=== PATIENT | male | born 1985 | race Caucasian/White ===

== ENCOUNTER 2018-04-09 16:33 | Emergency (ER) | payer BC ==
--- NOTE | 2018-04-09 16:57 | EDPHY ---
H & P Stated Complaint: right foot infection s/p right toe amputation 1 1/2 months ago Time Seen by Provider: 04/09/18 16:46 HPI/ROS: CHIEF COMPLAINT: Postoperative infection HISTORY OF PRESENT ILLNESS: The patient is a 32 year old who comes to the emergency department complaining of a wound infection to his right foot. He states that 2 months ago he stepped on a piece of glass that penetrated to his bone. It got infected and caused osteomyelitis and he had to have a toe and 1st metatarsal amputation. His postoperative wound got infected and had to be revised about 3 weeks ago. He has been on doxycycline. He states however that he is starting to have fevers and the wound is dehisced and become erythematous and has purulent drainage. He States that it is very painful. He is worried about return of infection and bacteremia. Patient was newly diagnosed as type 2 diabetic at the beginning of this infection but states that is currently under much better control. Severity: Moderate Modifying factors: Chills improved with Tylenol this morning REVIEW OF SYSTEMS: Constitutional: See HPI EENTM: denies: blurred vision, double vision, nose congestion Respiratory: denies: cough, shortness of breath Cardiac: denies: chest pain, irregular heart rate, lightheadedness, palpitations Gastrointestinal/Abdominal: denies: abdominal pain, diarrhea, nausea, vomiting, blood streaked stools Genitourinary: denies: dysuria, frequency, hematuria, pain Musculoskeletal: See HPI Skin: denies: lesions, rash, jaundice, bruising Neurological: denies: headache, numbness, paresthesia, tingling, dizziness, weakness Hematologic/Lymphatic: denies: blood clots, easy bleeding, easy bruising Immunologic/allergic: denies: HIV/AIDS, transplant 10 systems reviewed and negative except as noted EXAM: GENERAL: Well-appearing, well-nourished and in no acute distress. HEAD: Atraumatic, normocephalic. EYES: Pupils equal round and reactive to light, extraocular movements intact, sclera anicteric, conjunctiva are normal. ENT: TMs normal, nares patent, oropharynx clear without exudates. Moist mucous membranes. NECK: Normal range of motion, supple without lymphadenopathy or JVD. LUNGS: Breath sounds clear to auscultation bilaterally and equal. No wheezes rales or rhonchi. HEART: Regular rate and rhythm without murmurs, rubs or gallops. ABDOMEN: Soft, nontender, normoactive bowel sounds. No guarding, no rebound. No masses appreciated. BACK: No CVA tenderness, no spinal tenderness, step-offs or deformities EXTREMITIES: Right toe and metatarsal amputation, wound dehisced in the middle with mild erythema, some skin. No obvious purulence. Very tender to palpation. Normal range of motion, no pitting or edema. No clubbing or cyanosis. NEUROLOGICAL: Cranial nerves II through XII grossly intact. Normal speech, normal gait. 5/5 strength, normal movement in all extremities, normal sensation , normal reflexes PSYCH: Normal mood, normal affect. SKIN: See above. Source: Patient Exam Limitations: No limitations - Personal History Current Tetanus/Diphtheria Vaccine: Yes Current Tetanus Diphtheria and Acellular Pertussis (TDAP): Yes - Medical/Surgical History Hx Asthma: No Hx Chronic Respiratory Disease: No Hx Diabetes: No Hx Cardiac Disease: No Hx Renal Disease: No Hx Cirrhosis: No Hx Alcoholism: No Hx HIV/AIDS: No Hx Splenectomy or Spleen Trauma: No Other PMH: right great toe amputation, borderline NIDDM - Family History Significant Family History: No pertinent family hx - Social History Smoking Status: Never smoked Alcohol Use: Sober Drug Use: None Constitutional: Initial Vital Signs Temperature (C) 36.6 C 04/09/18 16:34 Heart Rate 78 04/09/18 16:34 Respiratory Rate 18 04/09/18 16:34 Blood Pressure 169/94 H 04/09/18 16:34 O2 Sat (%) 98 04/09/18 16:34 O2 Delivery Mode Nasal Cannula O2 (L/minute) 2 Allergies/Adverse Reactions: No Known Allergies Allergy (Unverified 04/09/18 16:41) Home Medications: Medication Instructions Recorded Glimepiride [Amaryl] 4 mg PO DAILY 04/09/18 Ibuprofen [Motrin (*)] 800 mg PO TIDMEAL PRN 04/09/18 oxyCODONE IR [Oxycodone Ir (*)] 10 mg PO Q6 PRN 04/09/18 Medical Decision Making - Diagnostics Imaging: Discussed imaging studies w/ executive personal assistant Radiologist ED Course/Re-evaluation: 7:00 p.m. I discussed the case with Dr. Tellez who will admit to the medical service. He suggest Unasyn. Patient does not have severe sepsis. Patient's pain is controlled with ketamine. 8:00 p.m. the patient was evaluated by internal medicine. 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 He understands the risks involved. He is signing out AMA Differential Diagnosis: Partial list of the Differential diagnosis considered include but were not limited to; wound infection, postoperative infection, cellulitis, osteomyelitis and although unlikely based on the history and physical exam, I also considered joint infection, sepsis. - Data Points Laboratory Results: Laboratory Results 04/09/18 17:28 04/09/18 17:28 Microbiology Results: MICROBIOLOGY 04/09/18 17:50 Foot - Anaerobic Tube/Swab Gram Stain - Final 04/09/18 17:50 Foot - Anaerobic Tube/Swab Wound Culture - Preliminary Klebsiella Aerogenes Enterobacter Cloacae Complex MRSA Medications Given: Discontinued Medications Ampicillin Sodium/Sulbactam (Sodium 3 gm/ Sodium Chloride) 100 mls @ 200 mls/ hr IV EDNOW ONE PRN Reason: Protocol Stop: 04/09/18 19:34 Last Admin: 04/09/18 20:12 Dose: Not Given Ketamine HCl (Ketamine) 20 mg IVP EDNOW ONE Stop: 04/09/18 18:25 Last Admin: 04/09/18 18:36 Dose: 20 mg Departure - Departure Disposition: Against Medical Advice Clinical Impression: Surgical wound infection Qualifiers: Encounter type: initial encounter Qualified Code(s): T81.4XXA - Infection following a procedure, initial encounter Condition: Fair
[2018-04-09 18:10] LABS: PLATELET COUNT 311 10^3/uL (150-400)
[2018-04-09 18:20] LABS: INR 1.02 (0.83-1.16)
[2018-04-09 18:21] LABS: PROTIME(PATIENT) 13.6 SEC (12.0-15.0)
[2018-04-09] MEDS ORDERED: KETAMINE 200 MG/20 ML VIAL IVP ONE (18:24)
[2018-04-09] MEDS ORDERED: AMPICILLIN/SULBACTAM 3 GM in NS 100 ML IV ONE (19:05)
[2018-04-09] MEDS ORDERED: ONDANSETRON DISINTEGRATING 4 MG TAB PO PRN (19:07)
[2018-04-09] MEDS ORDERED: ONDANSETRON 4 MG/2 ML VIAL IVP PRN (19:07)
[2018-04-09] MEDS ORDERED: OXYCODONE/APAP 5/325 TAB PO PRN (19:07)
[2018-04-09] MEDS ORDERED: ACETAMINOPHEN 325 MG TAB PO PRN (19:07)
[2018-04-09 19:40] VITALS: BP 165/105
[2018-04-10] MEDS ORDERED: AMPICILLIN/SULBACTAM 3 GM in NS 100 ML IV SCH
[2018-04-10] MEDS ORDERED: ENOXAPARIN 40 MG/0.4 ML SYR SC SCH (09:00)
== END 2018-04-09 20:18 | disposition left against medical advice (07) ==
LOC: UNDOADMOB 19:07
DX: T81.4XXA Infection following a procedure, initial encounter (principal); E11.9 Type 2 diabetes mellitus without complications; Z89.421 Acquired absence of other right toe(s)
CPT/HCPCS: J0295; J1650

== ENCOUNTER 2018-04-09 23:18 | Inpatient (IN) | payer BC ==
[2018-04-09] MEDS ORDERED: AMPICILLIN/SULBACTAM 3 GM in NS 100 ML IV ONE (23:55)
--- NOTE | 2018-04-09 23:58 | EDPHY ---
H & P Time Seen by Provider: 04/09/18 23:43 HPI/ROS: CHIEF COMPLAINT: Right foot infection HISTORY OF PRESENT ILLNESS: Patient is a 32-year-old male with a history of type 2 diabetes and osteomyelitis of the right foot here requesting admission for right foot infection. He was seen earlier today and offered admission but left against medical advice in order to take care of his children. He is returning now stating REVIEW OF SYSTEMS: Constitutional: No fever, no chills. Eyes: No discharge. ENT: No sore throat. Cardiovascular: No chest pain, no palpitations. Respiratory: No cough, no shortness of breath. Gastrointestinal: No abdominal pain, no vomiting. Genitourinary: No hematuria. Musculoskeletal: No back pain. Skin: No rashes. Neurological: No headache. Smoking Status: Never smoked Physical Exam: General Appearance: Alert and no distress. Eyes: Pupils equal and round no injection. Respiratory: Chest is nontender, lungs are clear to auscultation. Cardiac: regular rate and rhythm. Gastrointestinal: Abdomen is soft and nontender, no masses, bowel sounds normal. Musculoskeletal: Neck is supple and nontender. Extremities have full range of motion and are nontender. Skin: 3-4 cm surgical incision over the right medial midfoot with wound dehiscence. There is surrounding erythema and induration without drainage. Constitutional: Initial Vital Signs Temperature (C) 37.2 C 04/09/18 23:24 Heart Rate 109 H 04/09/18 23:24 Respiratory Rate 20 04/09/18 23:24 Blood Pressure 151/127 H 04/09/18 23:24 O2 Sat (%) 95 04/09/18 23:24 O2 Delivery Mode Room Air Allergies/Adverse Reactions: No Known Allergies Allergy (Unverified 04/09/18 16:41) Home Medications: Medication Instructions Recorded Glimepiride [Amaryl] 4 mg PO DAILY 04/09/18 Ibuprofen [Motrin (*)] 800 mg PO TIDMEAL PRN 04/09/18 oxyCODONE IR [Oxycodone Ir (*)] 10 mg PO Q6 PRN 04/09/18 Medical Decision Making ED Course/Re-evaluation: Patient admitted for further management of right foot wound dehiscence and infection. Patient likely needs an MRI to ensure he does not have chronic osteomyelitis. Unasyn was given in the emergency room after blood cultures and wound culture were sent. Differential Diagnosis: Sepsis, osteomyelitis, necrotizing fasciitis, compartment syndrome, DVT Departure - Departure Disposition: [facility] Inpatient Acute Condition: Fair
[2018-04-10] MEDS ORDERED: ONDANSETRON 4 MG/2 ML VIAL IVP PRN (00:10)
[2018-04-10] MEDS ORDERED: ACETAMINOPHEN 325 MG TAB PO PRN (00:10)
[2018-04-10] MEDS ORDERED: ONDANSETRON DISINTEGRATING 4 MG TAB PO PRN (00:10)
[2018-04-10] MEDS ORDERED: HYDROmorphONE/DILAUDID 4 MG TAB PO PRN (02:18)
[2018-04-10] MEDS ORDERED: D50W 25 GM/50 ML VIAL IVP PRN (02:19)
[2018-04-10] MEDS ORDERED: VANCOMYCIN 1.25 GM in NS 250 ML IV SCH (02:30)
--- NOTE | 2018-04-10 02:34 | PDGENHP ---
History and Physical - Chief Complaint Foot infection - History of Present Illness 32 yo M w/ NIDDM presents with R foot infection. Patient tells me he initially suffered an injury to his R foot (stepped on glass) 6 months ago. This progressed to osteomyelitis and he was treated with two rounds of IV antibiotics (Vancomycin and then Daptomycin). Despite this he required 2 separate surgical procedures (3 months and 1.5 months ago) resulting in the loss of his R great toe. He tells me since his last surgery his wound has not healed well. He moved to [place] from [place] 2 months ago. He was seen [facility] two weeks ago and had the wound sutured and he was placed on a ten day course of Clindamycin. Despite this, his foot has become swollen, red, and hot over the last 6 days. He reports several fevers at home in the 103-104 range. Currently he is complaining of severe R foot pain but otherwise feels well. Of note, he tells me his diabetes is mild and he takes only oral glimepiride. He checks his BG once daily and usually gets values near 100. Case discussed with ED EFRA Crow and surgeon Dr. Marinelli. History Information - Allergies/Home Medication List Allergies/Adverse Reactions: No Known Allergies Allergy (Unverified 04/09/18 16:41) Home Medications: Glimepiride [Amaryl] 4 mg PO DAILY 04/09/18 [Last Taken 04/09/18] Ibuprofen [Motrin (*)] 800 mg PO TIDMEAL PRN 04/09/18 [Last Taken 04/09/18] oxyCODONE IR [Oxycodone Ir (*)] 10 mg PO Q6 PRN 04/09/18 [Last Taken 04/08/18] I have personally reviewed and updated: family history, medical history - Past Medical History diabetes type 2 - Surgical History Additional surgical history: R 1st toe amputation - Family History Additional family history: Asked, denies - Social History Smoking Status: Never smoked Review of Systems Review of Systems: ROS: 10pt was reviewed & negative except for what was stated in HPI & below Physical Exam Physical Exam: Temp Pulse Resp BP Pulse Ox 36.7 C 110 H 17 149/97 H 94 04/10/18 01:05 04/10/18 01:05 04/10/18 01:05 04/10/18 01:05 04/10/18 01:05 Constitutional: no apparent distress, obese Eyes: PERRL, EOMI Ears, Nose, Mouth, Throat: moist mucous membranes, no oral mucosal ulcers Cardiovascular: regular rate and rhythym, no murmur, rub, or gallop Respiratory: no respiratory distress, clear to auscultation Gastrointestinal: normoactive bowel sounds, soft, non-tender abdomen Skin: warm, other (Surgical scar dorsal/medial R foot with sutures in place, erythema and mild purulence noted) Musculoskeletal: full muscle strength, no muscle tenderness, other (S/p R 1st toe amp) Neurologic: AAOx3, CN II-XII Intact Psychiatric: interacting appropriately, not anxious Assessment & Plan Assessment: 32 yo M w/ NIDDM presents with ongoing issues with R foot infection. Plan: 1. Diabetic R foot infection - Initial injury occurred 6 months ago; treated in [place] with 2 rounds of IV antibiotics (Vanco, Dapto) and eventually R 1st toe amputation due to OM. Surgical incision healing has been poor despite resuturing and 10 day course of oral clindamycin. Foot currently erythematous and warm, patient reporting fevers at home. Choice of previous antibiotics ( Vanco, Dapto) and progression despite clindamycin raises suspicion for MRSA. GS from wound culture earlier today shows rare GPCs. XR of R foot on admission showed only post-surgical changes. - Vancomycin IV noting concern for MRSA - Blood and wound cultures pending - Discussed case with Dr. Marinelli, he will evaluate for possible I&D; maintain NPO for now - Infectious Disease consult placed - Dilaudid PO PRN for pain control - He may need MRI for evaluation of ongoing OM, but will await surgical and ID evaluation 2. NIDDM - On glimepiride 4 mg PO qD as outpatient. Patient tells me home BG's usually near 100. - Continue home medications - Check BG ACHS, D50 IV PRN for hypoglycemia - If glucose control is poor, he may need insulin as tight control will aid wound healing Diet - NPO pending surgical evaluation Code - Full Ppx - SCDs Dispo - Admit under inpatient status
[2018-04-10 02:59] LABS: PLATELET COUNT 286 10^3/uL (150-400)
[2018-04-10] MEDS ORDERED: LORazepam 2 MG/ML INJ IVP PRN (03:18)
[2018-04-10] MEDS ORDERED: LORazepam 1 MG TAB PO PRN (03:20)
[2018-04-10 03:55] VITALS: BP 143/85
--- NOTE | 2018-04-10 06:14 | PDDCSUM ---
Discharge Summary Discharge Summary: Patient left AMA shortly after admission. Please see H&P from same date for details about presenting condition.
[2018-04-10] MEDS ORDERED: GLIMEPIRIDE 2 MG TAB PO SCH (09:00)
--- NOTE | 2018-04-11 10:27 | PDMN ---
Medical Necessity Medical necessity: MCG: GRG musculoskeletal disease : complications post amputation: R foot infection with previously Dg osteomyelitis, and loss of great R toe, presents with swollen, red, hot foot over last 6 days, fever 103- 104, severe pain, pt has DM2, previous abx with progression of symptoms, concern for MRSA, pt will be NPO, IV abx, ID consult, pending poss I/D., anticipate > 2 MN ongoing med nec care. Pt Left AMA
== END 2018-04-10 05:20 | disposition left against medical advice (07) | DRG 638 ==
LOC: F3E 04-10 01:00
PROVIDERS: ADMIT Student in an Organized Health Care Education/Training Program; ATTEND Student in an Organized Health Care Education/Training Program
DX: E11.69 Type 2 diabetes mellitus with other specified complication (principal); M86.9 Osteomyelitis, unspecified; Z89.421 Acquired absence of other right toe(s)
CPT/HCPCS: J0295; J3370